=== PATIENT | male | born 1930 | race Caucasian/White ===

== ENCOUNTER → 2017-03-27 | Outpatient (CLI) | payer MEDICARE ==
[~2017-03-27] MED LIST: ACETAMINOPHEN; ACETAMINOPHEN PO; ASPIRIN EC81 M1 PO; ASPIRIN81 M1; CARDIZEM LA240 MG PO; CARDIZEM SR; JANUMET 50-1,1 UDTAB; JANUVIA PO; OYSTER SHELL C500 MG; PANTOPRAZOLE SO40 MG PO; PLAVIX; QUINAGLUTE DUR324 MG; TOPROL XL50 MG PO; ZOCOR20 MG
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
== END | disposition home or self-care (01) ==
LOC: SRAD 13:34
DX: M79.661 Pain in right lower leg (principal); M79.662 Pain in left lower leg; M17.0 Bilateral primary osteoarthritis of knee; I99.8 Other disorder of circulatory system
CPT/HCPCS: 73590